=== PATIENT | female | born 1960 | race Caucasian/White ===

== ENCOUNTER → 2018-05-06 | Outpatient (CLI) | payer OTHER ==
--- NOTE | 2018-05-07 08:07 | MR ---
EXAMINATION TYPE: MR knee RT wo con DATE OF EXAM: 05/06/2018 COMPARISON: Outside radiographs 04/15/2018 HISTORY: 57-year-old female Right knee pain TECHNIQUE: Multiplanar, multisequence imaging of the right knee is performed without IV contrast. FINDINGS: ACL, PCL, MCL, and LCL complex are intact. There is an oblique tear at the junction of the posterior horn and body of the medial meniscus with a partial thickness radial tear of the body. Mild diffuse thickening of medial compartment articular c artilage volume. There is mild inner margin fraying along the posterior horn of the lateral meniscus with mild diffuse cartilage thinning in the lateral compartment but with more severe focal irregular cartilage loss po sterior weightbearing femoral condyle measuring 9 x 9 mm, sagittal series 301 image 22. Mild diffuse thinning of patellofemoral compartment articular cartilage with a deep cartilage fissure along the medial patellar facet, axial image 13. Extensor mechanism is intact with mild prepatellar soft tissue swelling. There is focal edema within Hoffa's fat located inferior and lateral to the patella, refer to sagitta l series 301 image 22. Small physiologic joint effusion and trace Byrd's cyst measuring 2 cm long. Normal popliteal artery anatomy and mild generalized muscle atrophy. No suspicious bone marrow replac ement. IMPRESSION: 1. Oblique tear at the junction of the posterior horn and body of the medial meniscus with partial th ickness radial tear extending into the meniscal body. 2. Minimal inner margin fraying of the posterior horn of the lateral meniscus. There is focal severe irregular cartilage loss along the posterior weightbearing aspect of the lateral femoral condyle paige uring 9 x 9 mm. 3. Deep cartilage fissure along the medial patellar facet. 4. Some focal edema in Hoffa's fat inferior and lateral to the patella. Findings can be seen in the s etting of fat pad impingement syndrome. Clinically correlate. 5. Trace Byrd's cyst.
== END ==
LOC: RADMRIMAIN 13:55
PROVIDERS: ATTEND Orthopaedic Surgery
DX: S83.241A Other tear of medial meniscus, current injury, right knee, initial encounter (principal); M71.21 Synovial cyst of popliteal space [Baker], right knee

== ENCOUNTER 2018-06-26 12:40 | Day surgery (SDC) | payer OTHER ==
[2018-06-20 15:23] VITALS: BMI 24.7
--- NOTE | 2018-06-25 19:46 | HP ---
HISTORY AND PHYSICAL SURGERY: 06/26/2018 Lauren Bailon is a 58-year-old patient seen with progressive right knee pain. We discussed treatment options. She elected to proceed with right knee arthroscopy. Consent regarding the procedure was obtained. PAST MEDICAL HISTORY: Noncontributory. PAST SURGICAL HISTORY: Laparoscopy. DAILY MEDICATIONS: Ibuprofen. ALLERGIES: None. SOCIAL HISTORY: Patient denies current tobacco use. PHYSICAL EXAMINATION: Evaluation right knee: Range of motion is 0 to 120 degrees. Mild effusion. Tenderness along the medial and lateral joint lines. Positive medial Sridevi's. Positive lateral Sridevi's. Ligaments stable. Hip rotation without pain. Distal neurovascular exam intact. RADIOGRAPHS: Right knee radiographs revealed moderate osteoarthritis and MRI of the right knee revealed medial and lateral meniscal tears. IMPRESSION: Internal derangement, right knee with medial and lateral meniscal tears. PLAN: Right knee arthroscopy with partial meniscectomy and debridement. MMODL / IJN: [id number] /
[~2018-06-26 12:40] MED LIST: DEXAMETHASONE SOD PHOSPHATE 10 MG/ML 1 ML VIAL IV ONE; HYDROmorphone 0.5 MG/0.5 ML SYRINGE IVP PRN; LIDOCAINE 1% 20 ML VIAL (10MG/ML) FOR IV START INTRADERMA PRN; MIDAZOLAM 2 MG/2 ML VIAL IV PRN; ONDANSETRON 4 MG/2 ML VIAL IVP ONE; SCOPOLAMINE 1.5MG/72HR PATCH TRANSDERM ONE; ceFAZolin 1,000 MG in DEXTROSE/WATER 1 50ML.BAG IV ONE
[2018-06-26] MEDS: LACTATED RINGERS 1,000 ML IV SCH ×2 (13:06→13:44)
[2018-06-26] MEDS ORDERED: fentaNYL (PF) 50 MCG/ML 2 ML AMP ONE (13:45)
[2018-06-26] MEDS ORDERED: PROPOFOL 10 MG/ML 20 ML VIAL IV ONE (13:45)
[2018-06-26] MEDS ORDERED: LIDOCAINE 1% INJ 10MG/ML (20 ML MDV) ONE (13:45)
[2018-06-26] MEDS ORDERED: SUCCINYLCHOLINE CHLORIDE 100 MG/5 ML SYR IV ONE (13:45)
[2018-06-26] MEDS ORDERED: MIDAZOLAM 2 MG/2 ML VIAL ONE (13:45)
[2018-06-26] MEDS ORDERED: BUPIVACAIN-EPI 0.25%-1:200,000 30 ML VIAL INTRAARTIC ONE ×2 (14:03→14:30)
--- NOTE | 2018-06-26 14:50 | P.OP ---
Date of Procedure: 06/26/18 Preoperative Diagnosis: Internal derangement right knee Postoperative Diagnosis: 1. Tear medial meniscus right knee 2. 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 Medial plica right knee 4. Reactive synovitis medial and suprapatellar compartments right knee Procedure(s) Performed: 1. Arthroscopic partial medial meniscectomy right knee 2. Arthroscopic chondroplasty patella right knee 3. Arthroscopic resection medial plica right knee 4. Arthroscopic partial synovectomy medial and suprapatellar compartments right knee Anesthesia: TIKIA, local Surgeon: Janusz Rivero Estimated Blood Loss (ml): 11 Pathology: none sent Condition: stable Disposition: PACU Indications for Procedure: 58-year-old patient seen with progressive right knee pain. After treatment options were discussed, she elected to proceed with arthroscopy. Operative Findings: see description of procedure Description of Procedure: Patient was taken to the operative suite. Patient underwent a general anesthetic by the department of anesthesia. Patient was given preoperative antibiotics. The right lower extremity was placed in a well-padded arthroscopic leg manzanares. The right leg was prepped and draped in the normal sterile orthopedic fashion. A lateral parapatellar and suprapatellar incision was made. Trochars were inserted. Arthroscopy was initiated. Suprapatellar pouch revealed thick reactive synovitis diffusely. The patellofemoral joint appeared to articulate congruently. There grade 1/2 chondromalacia of the patella with some osteochondral tears present. The scope was guided into the medial gutter. There was a medial plica and noted. It did impinge along the medial femoral condyle with range of motion. The scope was then guided into the medial compartment. A medial parapatellar incision was made. Trocar inserted followed by probe. There was a complex tear posterior horn medial meniscus. There was thick reactive synovitis anteriorly. No significant chondromalacia was present. I performed a partial medial meniscectomy down to stable tissue. I performed a partial synovectomy decompressing the thick reactive synovitis. The residual meniscus was stable. There was good decompression of the synovitis. Scope and probe were then guided into the intercondylar notch. Cruciates were identified, probed and found to be stable. The scope and probe were then guided into lateral compartment. Lateral meniscus was probed and found to be intact with no tear. There was no superior chondromalacia. There was no synovitis. The scope was in guided back into the suprapatellar compartment. I introduced a motorized shaver into the super compartment. I resected that medial plica. I performed a chondroplasty of the patella. I performed a partial synovectomy decompressing synovitis. The shaver was removed. I took these range of motion noted complete resection of plica. The residual osteochondral surface of the patella was stable. There was good decompression of the synovitis. I took one more look on the entire knee, no residual debris. Instruments were now removed from the joint. The joint was infiltrated with .25% Marcaine. Steri-Strips were applied to the portal sites. Sterile dressings were applied. The patient was placed into a JOSHUA hose. No tourniquet was utilized. The patient was awakened, transferred to a bed and taken to recovery stable satisfactory condition.
[2018-06-26 14:51] VITALS: TEMP 97.7
[2018-06-26] MEDS ORDERED: MEPERIDINE 50 MG/ML SYRINGE IVP ONE (15:06)
[2018-06-26] MEDS ORDERED: KETOROLAC 30 MG/ML 1 ML VIAL IVP ONE (15:35)
[2018-06-26 15:46] VITALS: RESP 16
[2018-06-26 16:42] VITALS: BP 145/87; PULSE 86
== END 2018-06-26 17:09 | disposition home or self-care (01) ==
LOC: OR 12:40
PROVIDERS: ATTEND Orthopaedic Surgery
DX: M23.321 Other meniscus derangements, posterior horn of medial meniscus, right knee (principal); M67.51 Plica syndrome, right knee; M65.861 Other synovitis and tenosynovitis, right lower leg; M22.41 Chondromalacia patellae, right knee; Z79.1 Long term (current) use of non-steroidal anti-inflammatories (NSAID)
CPT/HCPCS: 29881; J2250; J1100; J2175; J2405; J2001; J3010; J1885; J0690; J0330; J2704